=== PATIENT | male | born 1955 | race Caucasian/White ===

== ENCOUNTER 2022-08-16 17:19 | Emergency (ER) | payer MEDICAID ==
[~2022-08-16] VITALS: Ht 172.7 cm; Wt 84.1 kg
[2022-08-16 18:11] LABS: BASOPHILS # (AUTO) 0.1 X10'3 (0-0.2); BASOPHILS % (AUTO) 0.4 % (0-1); EOSINOPHILS # (AUTO) 0.1 X10'3 (0-0.9); EOSINOPHILS % (AUTO) 0.4 % (0-6); HEMATOCRIT 43.8 % (42.0-52.0); HEMOGLOBIN 15.2 g/dl (14.0-17.9); LYMPHOCYTES # (AUTO) 1.6 X10'3 (1.1-4.8); LYMPHOCYTES % (AUTO) 10.9 % (21-51); MEAN CORPUSCULAR HEMOGLOBIN 31.1 PG (27.0-31.0); MEAN CORPUSCULAR HGB CONC 34.8 g/dL (33.0-36.5); MEAN CORPUSCULAR VOLUME 89.4 FL (78-98); MEAN PLATELET VOLUME 9.5 FL (7.4-10.4); MONOCYTES % (AUTO) 6.7 % (2-12); NEUTROPHILS % (AUTO) 81.6 % (42-75); PLATELET COUNT 247 X10'3 (140-440); RED CELL DISTRIBUTION WIDTH 13.5 % (11.5-14.5); WHITE BLOOD COUNT 14.7 X10'3 (4.5-11.0)
[2022-08-16 18:27] LABS: CLARITY,URINE CLOUDY (Clear); COLOR,URINE YELLOW (Yellow); GLUCOSE, URINE NEGATIVE (Neg); KETONES,URINE TRACE mg/dl (Neg); LEUKOCYTE ESTERASE ,URINE NEGATIVE (Neg); NITRITES, URINE NEGATIVE (Neg); OCCULT BLOOD,URINE LARGE (Neg); PH,URINE 5.5 (4.8-8.0); PROTEIN,URINE TRACE mg/dl (Neg); UROBILINOGEN,URINE 0.2 E.U/dL (0.2-1.0)
[2022-08-16 18:28] LABS: UA COLLECTION TYPE CLN CATCH MIDSTREAM
[2022-08-16 18:30] LABS: ALANINE AMINOTRANSFERASE 23 U/L (12-78); ALBUMIN/GLOBULIN RATIO 1.2 (1.1-1.5); ALKALINE PHOSPHATASE 98 IU/L (46-116); ANION GAP 11 (8-16); ASPARTATE AMINO TRANSFERASE 21 U/L (10-37); BILIRUBIN,TOTAL 0.7 MG/DL (0.1-1.0); BLOOD UREA NITROGEN 14 MG/DL (7-18); BUN/CREATININE RATIO 9.7 (5.4-32.0); CALCIUM 9.5 MG/DL (8.5-10.1); CHLORIDE 104 MMOL/L (99-107); CREATININE 1.44 MG/DL (0.60-1.10); GLUCOSE 136 MG/DL (70-104); LIPASE 133 U/L (73-393); POTASSIUM 4.1 MMOL/L (3.5-5.1); SODIUM 139 MMOL/L (135-145); TOTAL PROTEIN 7.4 G/DL (6.4-8.2); eGFR 49 ML/MIN
[2022-08-16 18:42] LABS: BACTERIA,URINE FEW /HPF (Neg); RBC,URINE TNTC /HPF (0-2); SQUAMOUS EPITHELIAL CELL,UR FEW /LPF (FEW)
[2022-08-16 18:43] LABS: CAL OXALATE CRYSTALS 3+ /HPF (NEGATIVE)
[2022-08-16] MEDS ORDERED: normal saline 1000ML IV soln IVB ONE (21:50)
[2022-08-16] MEDS ORDERED: CefTRIAXone/D5W-Rocephin 1gm 50 ML IV ONE (21:55)
[2022-08-16] MEDS ORDERED: HYDROcodone/acetaminophen 10/325mg tab PO ONE (22:20)
--- NOTE | 2022-08-16 22:48 | NUR ---
Patient repeatedly asking for food, snacks, juice, etc. while nurse was starting IV on patient. When asking patient about his episodes of emesis, he stated that he does in fact throw up when he eats and wants to see if it makes him throw up but hes also hungry...
[2022-08-16] MEDS ORDERED: TRAM50TA2 PO (23:46)
[2022-08-16] MEDS ORDERED: CEPH250T PO (23:46)
[2022-08-16] MEDS ORDERED: FLO0.4C PO (23:46)
[2022-08-16] MEDS ORDERED: NAPR-56 PO (23:46)
[2022-08-17 00:17] VITALS: BP 127/88
[2022-08-17] MEDS ORDERED: tamsulosin 0.4mg capsule PO SCH ×2 (21:00)
== END 2022-08-17 00:19 | disposition home or self-care (01) ==
LOC: ER 17:22
DX: N39.0 Urinary tract infection, site not specified (principal); Z87.442 Personal history of urinary calculi; Z79.899 Other long term (current) drug therapy
CPT/HCPCS: 36415; 74176; 80053; 81001; 83690; 85025; 87088; 96365; 99284; J0696; J7030